=== PATIENT | male | born 1950 | race Caucasian/White ===

== ENCOUNTER 2020-08-28 21:58 | Inpatient (IN) | payer OTHER ==
[~2020-08-28] VITALS: Ht 91.4 cm; Wt 5.0 kg
[2020-08-28] MEDS ORDERED: ELIQUIS5 MG (22:00)
[2020-08-28] MEDS ORDERED: VALSARTAN80 MG (22:01)
[2020-08-28] MEDS ORDERED: TOPROL XL50 M1 (22:01)
[2020-08-28] MEDS ORDERED: LUMIGAN2.5 M1 (22:02)
[2020-08-28] MEDS ORDERED: SYNTHROID50 MCG (22:02)
[2020-08-28] MEDS ORDERED: FENOFIBRATE145 MG (22:02)
[2020-08-28] MEDS ORDERED: COMBIGAN EYE DRO5 ML (22:03)
[2020-08-28] MEDS ORDERED: DORZOLAMIDE HCL10 ML (22:03)
[2020-08-28] MEDS ORDERED: AMIODARONE HCL100 MG (22:03)
[2020-08-30] MEDS ORDERED: DORZOLAMIDE-TIM10 ML (09:09)
== END 2020-08-31 13:58 | disposition home or self-care (01) | DRG 313 ==
LOC: ER 21:58 → MEDI 08-29 10:59 → MEDJ 08-29 10:59 → MEDI 08-29 14:38
PROVIDERS: ADMIT Internal Medicine; ATTEND Internal Medicine
PROC: B24BYZZ Ultrasonography of Heart with Aorta using Other Contrast (ICD-10-PCS; 2020-08-29)
PROC: 4A02XM4 Measurement of Cardiac Total Activity, External Approach (ICD-10-PCS; 2020-08-29)
PROC: 3E073KZ Introduction of Other Diagnostic Substance into Coronary Artery, Percutaneous Approach (ICD-10-PCS; 2020-08-29)
PROC: 4A12X4Z Monitoring of Cardiac Electrical Activity, External Approach (ICD-10-PCS; principal; 2020-08-30)
DX: R07.89 Other chest pain (principal); I48.20 Chronic atrial fibrillation, unspecified; I10 Essential (primary) hypertension; E78.49 Other hyperlipidemia; Z79.01 Long term (current) use of anticoagulants; Z20.822 Contact with and (suspected) exposure to COVID-19